=== PATIENT | female | born 1970 | race Caucasian/White ===

== ENCOUNTER 2021-12-25 09:53 | Emergency (ER) | payer BC ==
[2021-12-25 10:31] LABS: HEMOGLOBIN 16.4 gm/dl (12.3-15.3); RED BLOOD COUNT 4.96 M/UL (4.00-5.10); WHITE BLOOD COUNT 12.8 K/UL (4.5-11.0)
[2021-12-25 10:58] LABS: BUN/CREATININE RATIO 15 (0-10)
== END 2021-12-25 13:00 ==
LOC: ER1 09:53
PROVIDERS: Emergency Medicine
DX: I63.9 Cerebral infarction, unspecified (principal); I10 Essential (primary) hypertension; E78.5 Hyperlipidemia, unspecified; Z95.810 Presence of automatic (implantable) cardiac defibrillator; Z51.81 Encounter for therapeutic drug level monitoring
CPT/HCPCS: 70450; 71045; 80053; 82550; 82553; 84484; 85025; 85610; 85730; 93005; 99285